=== PATIENT | female | born 1930 | race Caucasian/White ===

== ENCOUNTER 2017-08-05 02:40 | Inpatient (IN) | payer MEDICARE ==
[~2017-08-05] VITALS: Ht 162.6 cm; Wt 65.3 kg
--- NOTE | ~2017-08-05 | HP ---
History And Physical [address] [address] [place]. [address] NAME: MAHI LEVIN : [birth year] STATUS : ADM Mumtaz PAT#: [id number] AGE: 86 ADM/REG DATE : 08/05/17 MR#: [id number] REPORT SERV DATE: 08/05/17 DICTATED BY: MIHAI JESSICA DATE: 08/05/17 REPORT STATUS : Draft TRANSCRIBED BY: MODL DATE: 08/05/17 DATE OF ADMISSION: 08/05/2017 CHIEF COMPLAINT: Dizziness, nausea, vomiting. HISTORY OF PRESENT ILLNESS: This is an 86-year-old female with a history of chronic kidney disease, hypothyroidism, restless legs syndrome, chronic inflammatory demyelinating polyneuropathy, who presents to the emergency room at [facility] with the above-mentioned complaint. History is obtained from the patient and her great granddaughter who is at bedside and reviewing data available in the [employer] system. According to Ms. Levin, she had been in the usual state of health until yesterday in the afternoon when she started experiencing dizziness. She usually lies down and it goes away, but this time, it persisted. She started having severe nausea and vomiting as well primarily due to her dizziness. It continued on into the evening and she became very uncomfortable. She even tried to eat some food which she immediately threw up. The family was concerned and the patient was brought to the emergency room to be evaluated. In the emergency room, initial workup revealed nothing acute in the CT of the abdomen and pelvis. An EKG was unremarkable. She was given Antivert, Zofran, and Phenergan for symptoms. Hospitalist Service is asked to admit her for further evaluation and treatment. At the time of my evaluation, she denied any chest pain or palpitations. She had no orthopnea. She had no cough, hemoptysis, night sweats, or weight loss. She has not had any recent falls or loss of consciousness. No history of recent fevers, chills, hematemesis, hematochezia, or hematuria. No other history of recent travel or exposures other than those mentioned above. PAST MEDICAL HISTORY: Significant for history of restless legs syndrome, chronic inflammatory demyelinating polyneuropathy on plasmapheresis. She is followed by her national coverage specialist, Dr. Biggs; and Dr. Robert, her neurologist. She recently had a percutaneous angioplasty of the left upper extremity fistula and the innominate vein as well. She has chronic kidney disease, stage 3; hypertension; and hypothyroidism as well. SOCIAL HISTORY: She never smoked. Does not drink or use recreational drugs. FAMILY HISTORY: Noncontributory. MEDICATIONS: Her medications at home were reviewed by me in the chart today and reordered by me. REVIEW OF SYSTEMS: As in history of present illness. All other systems were reviewed in detail and are quite unremarkable. History And Physical [address] [address] NAME: MAHI LEVIN : [birth year] STATUS : ADM Mumtaz PAT#: [id number] AGE: 86 ADM/REG DATE : 08/05/17 MR#: [id number] REPORT SERV DATE: 08/05/17 DICTATED BY: MIHAI JESSICA DATE: 08/05/17 REPORT STATUS : Draft TRANSCRIBED BY: SHERIF DATE: 08/05/17 PHYSICAL EXAMINATION: GENERAL: This is a pleasant 86-year-old, not in any acute distress. HEENT: Her head is atraumatic, normocephalic. She is alert, awake, and oriented to time, place, and person. Pupils are equal, reacting to light and accommodating. External ocular muscles are intact. Membranes are moist and pink. Sclerae are nonicteric. NECK: Supple with no jugular venous distention, lymphadenopathy, or thyromegaly. LUNGS: Clear to auscultation with no wheezes, rubs, or crackles. HEART: Heart sounds are regular with no murmurs, rubs, or gallops. ABDOMEN: Soft and nontender. Bowel sounds are present. EXTREMITIES: Showed no cyanosis, clubbing, or edema. NEUROLOGIC: Grossly intact. No focal, sensory, or motor deficits. Higher functions appeared intact. She has significant restless leg syndrome as well. VITAL SIGNS: Her temperature today is 97.6, pulse 74, respirations 22 a minute, blood pressure is 178/85, and oxygen saturations are 97% on room air. LABORATORY DATA: Reviewed on the [employer] system showed a sodium of 145; potassium 3.9; chloride 113; CO2 of 23; BUN was 19 with a creatinine of 1.20, which is about her baseline. Her blood glucose was 125. Her alkaline phosphatase was 39, ALT and AST were within normal limits, and lipase was 128. CBC showed a white blood cell count of 17,300, this is up from 7400 on 08/03/2017. Her hemoglobin was 9.3, hematocrit 29.6, and platelet count was 153,000. Her MCV was 79.6. Urinalysis was not done today. Films of the CT scan of her abdomen and pelvis were reviewed by me on the PACS today and official radiology report was also reviewed. There is no acute intraabdominal pathology to explain her symptoms. A 12-lead EKG done in the emergency room was reviewed and interpreted by me. There is sinus bradycardia at a rate of [address] elevations. IMPRESSION: 1. Dizziness. 2. Benign paroxysmal positional vertigo. 3. Nausea and bilious vomiting. 4. Hypertension. 5. Leukocytosis. 6. Chronic kidney disease, stage 3. 7. Hypothyroidism. 8. Restless legs syndrome. 9. Chronic inflammatory demyelinating polyneuropathy, on plasmapheresis. 10.Recent percutaneous angioplasty done by Dr. Whitfield. PLAN: We will admit Mrs. Levin to the Hospitalist Service with telemetry for a 24-hour observation period. We will go ahead and consult Dr. Robert or Neurology Service here to see her in the morning. She has BPPV, which is very responsive to the Zo maneuver. I have brought this up with the patient's family's smartphone, and I have advised them to culture to perform the maneuver. Meanwhile, we will provide Antivert, Zofran, and Phenergan for symptom relief. We will also obtain cultures and start her on empiric IV antibiotics after History And Physical [address] [address] NAME: MAHI LEVIN : [birth year] STATUS : ADM Mumtaz PAT#: [id number] AGE: 86 ADM/REG DATE : 08/05/17 MR#: [id number] REPORT SERV DATE: 08/05/17 DICTATED BY: MIHAI JESSICA DATE: 08/05/17 REPORT STATUS : Draft TRANSCRIBED BY: MODRobert DATE: 08/05/17 cultures are drawn. We will check her urinalysis today right away. We will continue all other medications and treatments at this time and place her on unfractionated heparin for DVT prophylaxis while here. I have discussed the above plans with the patient and the family. Questions were answered. They are agreeable to the above recommendations. /SHERIF Mihai Jessica M.D. / [id number] CC: Karma Mittal M.D.
--- NOTE | ~2017-08-05 | DS ---
Discharge Summary [facility] [address] [place]. [address] NAME: MAHI LEVIN : [birth year] STATUS : DIS IN PAT#: [id number] AGE: 86 ADM/REG DATE : 08/06/17 MR#: [id number] REPORT SERV DATE: 08/12/17 DICTATED BY: FAVIO BARNES DATE: 08/09/17 REPORT STATUS : Draft TRANSCRIBED BY: MODL DATE: 08/09/17 ADMISSION DATE: 08/06/2017 DISCHARGE DATE: 08/09/2017 Date of transfer to rehab, Replaced by [facility] is 08/09/2017. CONDITION ON DISCHARGE: Stable. DISPOSITION: To [facility] for inpatient rehab before the patient is able to go on home. DIAGNOSES ON DISCHARGE: 1. Dizziness and vertigo and unsteady gait secondary to a small posterior cerebral artery stroke - the patient had an MRI that showed a microhemorrhagic area in the left posterior cerebral area with stenotic left posterior cerebral artery. The patient is on aspirin and statin, and Neurology has evaluated the patient. The patient has no other deficits, but some dizziness, which has also improved with Antivert and also has unsteady gait which is why the patient is being transferred to the rehab. 2. CIDP or chronic inflammatory demyelinating polyneuropathy, which is also contributing to her unsteady gait. The patient gets monthly plasmapheresis for this. 3. Chronic anemia and low hemoglobin and hematocrit secondary to both plasmapheresis and also chronic kidney disease stage III. 4. Chronic kidney disease stage III with baseline creatinine around 1.4 to 1.5, which is stable. For the anemia, the patient has received 1 unit of PRBC transfusion and her hemoglobin and hematocrit are close to 9 and 27 now. The patient's stool Hemoccult has come back negative suggesting that this is anemia of chronic kidney disease, probably secondary to a combination of CKD and plasmapheresis. BRIEF HOSPITAL COURSE: Ms. Leivn is a pleasant, 86-year-old female patient, who was admitted on 08/05/2017 with the diagnosis of nausea, vomiting, dizziness, and unsteady gait. The patient was so dizzy that she was unable to even stand. She was admitted and stroke workup was initiated and Neurology was consulted. The patient received an MRI of the brain and an MRA. As mentioned above, MRI did show a small microhemorrhagic stroke in the left posterior area and MRA showed stenosis of the left posterior cerebral artery. M3 segment. Neurology suggested starting the patient on aspirin 325 mg once a day and statin. Hence, the patient was started on both and Physical Therapy and Occupational Therapy evaluated the patient. The patient's dizziness, however, significantly improved with Antivert 25 mg p.o. t.i.d. In addition to that, as the patient's hemoglobin and hematocrit were found to be quite low and closer to 7 and 21, her stool Hemoccult was checked. Stool Hemoccult came back negative, but the patient did feel stronger and steadier once she received even just 1 unit of PRBC transfusion, which she did. Her chronic kidney disease stage III remained stable with a creatinine of around 1.4 to 1.5. Discharge Summary [address] [address] NAME: MAHI LEVIN : [birth year] STATUS : DIS IN PAT#: [id number] AGE: 86 ADM/REG DATE : 08/06/17 MR#: [id number] REPORT SERV DATE: 08/12/17 DICTATED BY: FAVIO BARNES DATE: 08/09/17 REPORT STATUS : Draft TRANSCRIBED BY: SHERIF DATE: 08/09/17 The patient gets plasmapheresis on a monthly basis for chronic inflammatory demyelinating polyneuropathy that she has. The patient also has neurologist as outpatient for followup. Her neurologist is Dr. Robert. Her metal coater operator is Dr. Biggs. She is doing well, otherwise, and her other chronic issues which include hypertension and hypothyroidism are stable. Since her blood pressure slightly remained elevated during admission, I have started her on new medications that include isosorbide, metoprolol, and also hydralazine 25 mg p.o. t.i.d. The doctor at [facility] should feel free to adjust these medications on an as-needed basis. So, her condition has improved during hospital course and she is being transferred to [facility]. The most recent labs that I have on this patient include the following: CBC on 08/08/2017 shows WBC of 7.8, hemoglobin 8.8, hematocrit 27.8, and platelet count of 138. Electrolyte profile shows sodium 141, potassium 4.4, BUN is 26, and creatinine is 1.24. Her stool Hemoccult as mentioned above has come back negative for any blood. Her urinalysis has come back showing no significant infection. In the beginning when she was admitted, her urinalysis did show some leukocyte esterase and she has been treated for this with IV Rocephin for three days, and I do not think that she needs any more antibiotics at this time. Her lipid profile shows total cholesterol of 67, HDL of 32, LDL of 22, and triglycerides of 67. Blood cultures have come back with no growth and hemoglobin A1c is 5.4, folic acid is 26.3, vitamin B12 is 258. As vitamin B12 was somewhat on the lower side, the patient has received vitamin B12 while in the hospital. TSH is normal at 1.5. Free T4 is normal. Hence, she is being transferred to [facility] for gait training and ability to stand and walk at least with her walker with some steadiness before she is being able to be discharged home in the next few weeks. I have spent about 35 to 40 minutes in coordinating discharge care of this patient including [id number] encounter and summarizing this discharge. MAKI/SHERIF Favio Barnes M.D. / [id number]
--- NOTE | ~2017-08-05 | CN ---
Consultation Report [facility] [address] [place]. [address] NAME: MAHI LEVIN : [birth year] STATUS : ADM Mumtaz PAT#: [id number] AGE: 86 ADM/REG DATE : 08/05/17 MR#: [id number] REPORT SERV DATE: 08/05/17 DICTATED BY: DATE: REPORT STATUS : Draft TRANSCRIBED BY: MODL DATE: 08/05/17 NEUROLOGY CONSULTATION DATE OF CONSULTATION: 08/05/2017 REASON FOR CONSULTATION: "Dizziness." NEUROLOGIST: Jose Robert M.D. HOSPITALIST: Leland Viveros M.D. RADIATOR MECHANIC: Sandra Biggs M.D. HISTORY OF PRESENT ILLNESS: The patient is an 86-year-old female, who has a longstanding history of CIDP. She did not tolerate IVIG, breaking out into a rash with two different types of immunoglobulin. Consequently, she is now doing plasmapheresis once a month. She receives plasmapheresis three times a week once a month. She received plasmapheresis last week and during that time, her blood pressure became elevated. It was running 170 to 180 systolic. She did experience perioral numbness momentarily with her blood pressure elevation. On Saturday, the patient began to experience vertiginous symptoms. This is not unusual for her since she does have a longstanding history of BPPV. What was unusual with this episode was that it lasted greater than 24 hours. On Saturday, she stayed in the bed due to her vertigo and by Saturday evening, she could not quit vomiting. She tried to eat bread with peanut butter, but could not "keep it down." It was at this point she decided to come to the emergency department for further evaluation and treatment. When she arrived, she was examined and admitted for dizziness. The patient's granddaughter mentions that she has been very depressed, she cries very easily and is upset about the change in her quality of life. PAST MEDICAL HISTORY: Chronic kidney disease stage 3, hypothyroidism, restless legs syndrome, CIDP (the patient receives monthly plasmapheresis), hypertension, anxiety, history of DVT, lumbar stenosis, osteoarthritis, and vertigo (BPPV). PAST SURGICAL HISTORY: Tonsillectomy and adenoidectomy, cholecystectomy, left total shoulder arthroplasty, bilateral cataract extraction with lens implantation, left upper extremity fistula placement, and "back surgery." HOME MEDICATION LIST: Xanax 0.25 mg daily, Imdur 30 mg daily, levothyroxine 25 mcg daily, Cozaar 50 mg daily, methenamine tablet 1 g twice a day, Lopressor 12.5 mg twice a day, Protonix 40 mg daily, Pravachol 10 mg daily, Requip 0.25 mg t.i.d., and Ultram 50 mg q.i.d. p.r.n. Consultation Report [address] [place]. [address] NAME: MAHI LEVIN : [birth year] STATUS : ADM Mumtaz PAT#: [id number] AGE: 86 ADM/REG DATE : 08/05/17 MR#: [id number] REPORT SERV DATE: 08/05/17 DICTATED BY: DATE: REPORT STATUS : Draft TRANSCRIBED BY: MODL DATE: 08/05/17 ALLERGIES: CEFUROXIME, SULFA, AND CODEINE. SOCIAL HISTORY: The patient is a . Her great granddaughter lives with her. She does not smoke, drink alcohol, or use illicits. FAMILY HISTORY: The patient's mother at the age of 78 from cancer. Her father in his 50s from TB, and she has one sister. REVIEW OF SYSTEMS: Please refer to HPI for pertinent positives. PHYSICAL EXAMINATION: GENERAL: The patient is an 86-year-old female, who stands 5 feet 4 inches tall and weighs 144 pounds. VITAL SIGNS: She is afebrile. Heart rate 78, respiratory rate 18, O2 saturations on room air 97%, blood pressure 159/64. NEURO: The patient is awake. She is alert, oriented x4, pleasant. Communicates appropriately. Pupils are 2 mm. PERRLA. The patient has no nystagmus with lateral gaze. No reported diplopia. EOMs are intact. Vision via confrontation is full in both fernandez. Funduscopic exam, positive red reflex bilaterally. Normal disc-cup ratio. No nicking or hemorrhaging. No papillary edema. No reported sensory deficits when checking the cranial nerve #5. No facial droop. No tongue deviation. Uvula midline. [id number] does reveal ataxia bilaterally. No pronator drift. No dysmetria, tremor, or asterixis. Upper extremity strength is a 5/5 bilaterally. No reported sensory deficits. Upper DTRs 1+ bilaterally. Lower extremity strength is a 4/5 bilaterally. No reported sensory deficits. DTRs are 1+ bilaterally. Downgoing toes. The patient attempted to sit at the side of the bed and stand, but then became extremely "dizzy." NECK: Carotid bruits auscultated bilaterally. No thyromegaly or JVD. CHEST: Lung sounds relatively clear. CARDIAC: Regular rate and rhythm. LABORATORY DATA: CBC reveals a white count of 17.3. BMP normal, except glucose is 125. Procalcitonin 0.07. BNP 164. Lactate 1.5. Cholesterol values are normal. ASSESSMENT/PLAN: 1. Episodes of vertigo with a history of benign paroxysmal positional vertigo. At this point, posterior circulation stroke needs to be ruled out. The patient will undergo an MRI of the brain without gadolinium and an MRA of the head and neck with gadolinium. She will have an echocardiogram with bubble study. She will be started on aspirin 325 mg daily, and her Pravachol will be changed to Lipitor 20 mg q.h.s. PT, OT, and Case Management will be consulted. 2. History of benign paroxysmal positional vertigo. The patient will be placed on thiamine 100 mg IV daily. Her Xanax will be discontinued, and she will be placed on Valium 2 mg b.i.d. Consultation Report [address] [address] NAME: MAHI LEVIN : [birth year] STATUS : ADM Mumtaz PAT#: [id number] AGE: 86 ADM/REG DATE : 08/05/17 MR#: [id number] REPORT SERV DATE: 08/05/17 DICTATED BY: DATE: REPORT STATUS : Draft TRANSCRIBED BY: MODL DATE: 08/05/17 3. Reported depression. The patient will be started on Lexapro 10 mg daily, and supportive care has been offered. 4. Leukocytosis. This will be managed per hospitalist team. 5. CIDP. The patient is on plasmapheresis monthly. Thank you again for including us in consultation. We will continue to follow with you. Dr. Diana Madsen, my collaborating physician, has been made aware of the patient's case and plan of care. DICTATED BY: Olivia Clifford DNP, [facility]J/MODL Ian Madsen MD / [id number] CC: Karma Mittal M.D. Abdul M.W. Eletr, M.D. Lindsay C Crawford, M.D.
[~2017-08-05 02:40] MED LIST: ALAVERT10 MG PO; AMPI500 PO; ASAB; AUG875 PO; BLOOD PRESSURE RX PO; CARDIZEM LA300 MG PO; CARTIA XT300 MG/24 PO; CATAFLAM50 MG PO; CIP5 PO; COUMADIN3 MG PO; COUMADIN6 MG PO; COZ25 PO; COZ50 PO; LEVOTHYROXIN25 MCG PO; LIDODERM TOP; LIPITOR40 PO; LOP25 PO; MELA3 PO; MELATONIN300 MCG PO; MUCINEX600 MG PO; MYLANTA ULTR1 TAB PO; NEUR100 PO; NORV5 PO; PANTOPRAZOLE PO; PCET PO; PLAVIX; PR12.5 PO; PR25 PO; PROTONIX PO; PYR200 PO; REQUIP25 PO; REQUIP5 PO; ROPINIROLE PO; SYN.025B PO; SYNTHROID PO; ULTRAM ER100 MG PO; ULTRAM50 PO; X25 PO; [UNRECOGNIZED DRUG - OTHER] PO; [UNRECOGNIZED DRUG - OTHER] PO; [UNRECOGNIZED DRUG - REMARK] IV
[2017-08-05 04:40] LABS: BASOPHILS 0.2 %; BASOPHILS ABSOLUTE 0.03 10/3/uL (0.0-0.16); EOSINOPHILS 0.3 %; EOSINOPHILS ABSOLUTE 0.05 10/3/uL (0.0-0.53); HEMOGLOBIN 9.3 g/dL (12.0-16.0); IMMATURE GRANULOCYTES 0.3 %; IMMATURE GRANULOCYTES ABSOLUTE 0.05 10/3/uL (0.0-0.11); LYMPHOCYTES 7.5 %; LYMPHOCYTES ABSOLUTE 1.29 10/3/uL (0.67-4.30); MEAN CORPUS HGB CONC 31.4 g/dL (32.0-36.0); MEAN CORPUSCULAR VOLUME 79.6 fL (80-100); MEAN PLATELET VOLUME 9.2 fL (9.2-13.0); MONOCYTES 3.4 %; MONOCYTES ABSOLUTE 0.59 10/3/uL (0.21-1.20); NEUTROPHILS 88.3 %; NEUTROPHILS ABSOLUTE 15.24 10/3/uL (2.02-8.40); PLATELET COUNT 153 10/3/uL (150-400); RBC DISTRIBUTION WIDTH 16.2 % (12.0-16.0); RED CELL COUNT 3.72 10/6/uL (4.0-5.6)
[2017-08-05 04:42] LABS: HEMATOCRIT 29.6 % (36.0-48.0); MANUAL DIFF NO %; WHITE BLOOD CELLS 17.3 10/3/uL (4.5-10.5)
[2017-08-05] MEDS ORDERED: IMDUR30 PO (04:47)
[2017-08-05] MEDS ORDERED: LOP25 PO (04:48)
[2017-08-05] MEDS ORDERED: ULTRAM50 PO (04:49)
[2017-08-05] MEDS ORDERED: PRAV10 PO (04:50)
[2017-08-05] MEDS ORDERED: REQUIP25 PO (04:50)
[2017-08-05] MEDS ORDERED: COZ50 PO (04:51)
[2017-08-05] MEDS ORDERED: PROTONIX PO ×2 (04:51→05:07)
[2017-08-05] MEDS ORDERED: X25 PO (04:53)
[2017-08-05] MEDS ORDERED: LEVOTHYROXIN25 MCG PO (04:53)
[2017-08-05] MEDS ORDERED: METHENAM HIP1 GM PO (04:54)
[2017-08-05 04:56] LABS: BUN (BLOOD UREA NITROGEN) 19 MG/DL (6-23); CALCIUM, SERUM 9.4 MG/DL (8.5-10.4); CHLORIDE, SERUM 113 MMOL/L (96-112); CO2 (CARBON DIOXIDE) 23 MMOL/L (24-34); GFR AFRICAN AMERICAN 47 ML/MIN (>=60); GFR NON AFRICAN AMERICAN 41 ML/MIN (>=60); GLUCOSE, SERUM 125 MG/DL (60-99); POTASSIUM, SERUM 3.9 MMOL/L (3.5-5.3); SGOT(AST) 12 U/L (5-40); SGPT(ALT) 16 U/L (5-65); SODIUM, SERUM 145 MMOL/L (135-148); TOTAL BILIRUBIN 0.5 MG/DL (0-1.2); TOTAL PROTEIN 6.6 G/DL (6.0-8.5)
[2017-08-05 04:58] LABS: LACTATE 1.5 MMOL/L (0.3-2.4)
[2017-08-05 04:59] LABS: A/G RATIO 2.7 (0.7-1.9); ALBUMIN 4.8 G/DL (3.5-5.0); ALKALINE PHOSPHATASE 39 U/L (45-117); GLOBULIN 1.8 G/DL (2.5-4.1)
[2017-08-05] MEDS ORDERED: ASAB PO (05:01)
[2017-08-05] MEDS ORDERED: VITAMIN D31000 UNIT PO (05:02)
[2017-08-05] MEDS ORDERED: QUESLITE PO (05:02)
[2017-08-05] MEDS ORDERED: LIPITOR10 PO (05:02)
[2017-08-05] MEDS ORDERED: LOM PO (05:03)
[2017-08-05] MEDS ORDERED: PROZAC PO (05:03)
[2017-08-05] MEDS ORDERED: LEVSINTAB PO (05:05)
[2017-08-05] MEDS ORDERED: NORCO1 TAB PO (05:05)
[2017-08-05] MEDS ORDERED: EMLA TOP (05:06)
[2017-08-05] MEDS ORDERED: MAGOX4 PO (05:07)
[2017-08-05] MEDS ORDERED: PAREGORIC TINCT5 ML PO/LIQ (05:08)
[2017-08-05] MEDS ORDERED: KLOR-CON20 MEQ PO (05:08)
[2017-08-05] MEDS ORDERED: METPAKSF PO (05:08)
[2017-08-05] MEDS ORDERED: FLORASTOR250 MG PO (05:09)
[2017-08-05 06:35] LABS: PROCALCITONIN 0.07 ng/mL (<0.5)
[2017-08-05 18:38] LABS: FREE T4 0.84 NG/DL (0.76-1.46)
[2017-08-05 18:39] LABS: FOLATE 26.3 NG/ML (>5.2); ULTRASENSITIVE TSH 1.5 MCIU/ML (0.358-3.740)
[2017-08-06 05:15] LABS: BASOPHILS 0.5 %; BASOPHILS ABSOLUTE 0.05 10/3/uL (0.0-0.16); EOSINOPHILS 2.5 %; EOSINOPHILS ABSOLUTE 0.26 10/3/uL (0.0-0.53); IMMATURE GRANULOCYTES 0.3 %; IMMATURE GRANULOCYTES ABSOLUTE 0.03 10/3/uL (0.0-0.11); LYMPHOCYTES 28.5 %; LYMPHOCYTES ABSOLUTE 3.01 10/3/uL (0.67-4.30); MEAN CORPUS HGB CONC 30.4 g/dL (32.0-36.0); MEAN CORPUSCULAR HEMOGLOB 24.7 pg (26.0-34.0); MEAN CORPUSCULAR VOLUME 81.2 fL (80-100); MEAN PLATELET VOLUME 9.1 fL (9.2-13.0); MONOCYTES 6.7 %; MONOCYTES ABSOLUTE 0.71 10/3/uL (0.21-1.20); NEUTROPHILS 61.5 %; NEUTROPHILS ABSOLUTE 6.49 10/3/uL (2.02-8.40); PLATELET COUNT 118 10/3/uL (150-400); RBC DISTRIBUTION WIDTH 16.6 % (12.0-16.0); RED CELL COUNT 2.92 10/6/uL (4.0-5.6); WHITE BLOOD CELLS 10.6 10/3/uL (4.5-10.5)
[2017-08-06 05:16] LABS: HEMATOCRIT 23.7 % (36.0-48.0); HEMOGLOBIN 7.2 g/dL (12.0-16.0); MANUAL DIFF NO %
[2017-08-06 05:21] LABS: ALBUMIN 3.9 G/DL (3.5-5.0); CHLORIDE, SERUM 111 MMOL/L (96-112); CO2 (CARBON DIOXIDE) 23 MMOL/L (24-34); CREATININE 1.46 MG/DL (0.55-1.02); GFR AFRICAN AMERICAN 37 ML/MIN (>=60); GFR NON AFRICAN AMERICAN 32 ML/MIN (>=60); SODIUM, SERUM 143 MMOL/L (135-148)
[2017-08-06 05:24] LABS: BUN (BLOOD UREA NITROGEN) 23 MG/DL (6-23); CALCIUM, SERUM 8.2 MG/DL (8.5-10.4); GLUCOSE, SERUM 83 MG/DL (60-99)
[2017-08-06 16:54] LABS: CHOL/HDL RATIO(NOT ORDER) 2.1 (0-5)
[2017-08-06 17:35] LABS: ASCORBIC ACID (UR NOT ORDER) NEG (NEG); BILIRUBIN, URINE NEGATIVE (NEG); KETONE, URINE NEGATIVE (NEG); LEUKOCYTE ESTERASE(NOT OR MOD (NEG); WBC (NOT ORDERED) (RFLEX) 43 (0-5)
[2017-08-07 15:14] LABS: HEMATOCRIT 23.1 % (36.0-48.0); HEMOGLOBIN 7.3 g/dL (12.0-16.0)
[2017-08-08 06:37] LABS: BASOPHILS 0.6 %; BASOPHILS ABSOLUTE 0.05 10/3/uL (0.0-0.16); EOSINOPHILS 5.9 %; EOSINOPHILS ABSOLUTE 0.46 10/3/uL (0.0-0.53); HEMATOCRIT 27.8 % (36.0-48.0); HEMOGLOBIN 8.8 g/dL (12.0-16.0); IMMATURE GRANULOCYTES 0.1 %; IMMATURE GRANULOCYTES ABSOLUTE 0.01 10/3/uL (0.0-0.11); LYMPHOCYTES 27.1 %; MEAN CORPUS HGB CONC 31.7 g/dL (32.0-36.0); MEAN CORPUSCULAR HEMOGLOB 26.1 pg (26.0-34.0); MEAN CORPUSCULAR VOLUME 82.5 fL (80-100); MEAN PLATELET VOLUME 9.5 fL (9.2-13.0); MONOCYTES 7.9 %; MONOCYTES ABSOLUTE 0.61 10/3/uL (0.21-1.20); NEUTROPHILS 58.4 %; NEUTROPHILS ABSOLUTE 4.53 10/3/uL (2.02-8.40); PLATELET COUNT 138 10/3/uL (150-400); RBC DISTRIBUTION WIDTH 16.9 % (12.0-16.0); RED CELL COUNT 3.37 10/6/uL (4.0-5.6); WHITE BLOOD CELLS 7.8 10/3/uL (4.5-10.5)
[2017-08-08 06:38] LABS: MANUAL DIFF NO %
[2017-08-08 06:52] LABS: BUN (BLOOD UREA NITROGEN) 26 MG/DL (6-23); CALCIUM, SERUM 8.9 MG/DL (8.5-10.4); CHLORIDE, SERUM 114 MMOL/L (96-112); CREATININE 1.24 MG/DL (0.55-1.02); GFR AFRICAN AMERICAN 45 ML/MIN (>=60); GFR NON AFRICAN AMERICAN 39 ML/MIN (>=60); GLUCOSE, SERUM 89 MG/DL (60-99); POTASSIUM, SERUM 4.4 MMOL/L (3.5-5.3); SODIUM, SERUM 141 MMOL/L (135-148)
[2017-08-08 06:53] LABS: CO2 (CARBON DIOXIDE) 18 MMOL/L (24-34)
== END 2017-08-09 14:14 | DRG 65 ==
LOC: ER 02:40 → 4SO 06:08
PROVIDERS: Internal Medicine Pulmonary Disease; Nurse Practitioner; Nurse Practitioner Acute Care
PROC: 30233N1 Transfusion of Nonautologous Red Blood Cells into Peripheral Vein, Percutaneous Approach (ICD-10-PCS; principal; 2017-08-07)
DX: I63.532 Cerebral infarction due to unspecified occlusion or stenosis of left posterior cerebral artery (principal); G61.81 Chronic inflammatory demyelinating polyneuritis; N17.9 Acute kidney failure, unspecified; N39.0 Urinary tract infection, site not specified; H81.10 Benign paroxysmal vertigo, unspecified ear; N18.3 Chronic kidney disease, stage 3 (moderate); F32.9 Major depressive disorder, single episode, unspecified; I12.9 Hypertensive chronic kidney disease with stage 1 through stage 4 chronic kidney disease, or unspecified chronic kidney disease; E03.9 Hypothyroidism, unspecified; G25.81 Restless legs syndrome; E53.8 Deficiency of other specified B group vitamins
CPT/HCPCS: 36415; 70544; 70547; 70551; 71010; 74176; 80048; 80053; 80061; 80069; 81001; 82272; 82306; 82607; 82746; 83036; 83605; 83690; 83735; 83880; 84145; 84439; 84443; 85014; 85018; 85025; 86850; 86900; 86901; 86920; 87040; 87086; 93005; 93306; 96374; 96375; 97110-GP; 97116-GP; 97162-GP; 97166-GO; 99285; A9270-GY; G8978-CK-GP; G8979-CJ-GP; G8987-CJ-GO; G8988-CI-GO; J0690; J0692; J2405; J2550; J3370; J3411; P9016